=== PATIENT | female | born 1990 ===

== ENCOUNTER 2016-10-26 15:09 | Emergency (ER) | payer MEDICAID, OTHER ==
[2016-10-26 15:26] VITALS: BP 117/70; PULSE 89; RESP 16; TEMP 97.7; O2SAT 99
--- NOTE | 2016-10-26 16:20 | ED PDOC ---
HPI: Female Pain Time Seen by Provider: 10/26/16 15:39 Chief Complaint (Nursing): Female Genitourinary Chief Complaint (Provider): dysuria History Per: Patient Additional Complaint(s): pt c/o dysuria on and off for two weeks, worse x 3 days. no associated fever, cp, sob, abd pain, n/v, flank pain, vaginal bleeding or drainage. Past Medical History Reviewed: Historical Data, Nursing Documentation, Vital Signs Vital Signs: Last Vital Signs Temp 97.7 F 10/26/16 15:23 Pulse 89 10/26/16 15:23 Resp 16 10/26/16 15:23 BP 117/70 10/26/16 15:23 Pulse Ox 99 10/26/16 15:23 - Medical History PMH: No Chronic Diseases - Family History Family History: States: No Known Family Hx - Social History Current smoker - smoking cessation education provided: No Alcohol: None - Home Medications Home Medications: Ambulatory Orders Medication Instructions Recorded Ibuprofen 600 mg PO Q6 #20 tab 07/03/15 Ibuprofen [Motrin] 600 mg PO Q6H PRN #20 tab 10/02/15 Nitrofurantoin Macrocrystals 100 mg PO BID #10 cap 10/26/16 [Macrobid] - Allergies Allergies/Adverse Reactions: Allergies Allergy/AdvReac Type Severity Reaction Status Date / Time walnut Allergy SWELLING Verified 10/02/15 09:39 Review of Systems ROS Statement: Except As Marked, All Systems Reviewed And Found Negative Genitourinary Female: Positive for: Dysuria Physical Exam - Reviewed Nursing Documentation Reviewed: Yes Vital Signs Reviewed: Yes - Physical Exam Appears: Positive for: Well, Non-toxic, No Acute Distress Skin: Positive for: Normal Color, Warm, DRY Cardiovascular/Chest: Positive for: Regular Rate, Rhythm Respiratory: Positive for: CNT, Normal Breath Sounds Gastrointestinal/Abdominal: Positive for: Normal Exam, Bowel Sounds, Soft. Negative for: Tenderness Back: Negative for: L CVA Tenderness, R CVA Tenderness Neurologic/Psych: Positive for: Alert, Oriented - ECG O2 Sat by Pulse Oximetry: 99 Disposition - Clinical Impression Clinical Impression: Urinary tract infection - Patient ED Disposition Is Patient to be Admitted: No - Disposition Referrals: [facility] [Outside] Disposition: Routine/Home Disposition Time: 16:20 Condition: GOOD Prescriptions: Nitrofurantoin Macrocrystals [Macrobid] 100 mg PO BID #10 cap Instructions: Urinary Tract Infection in Women (ED) Forms: [facility] ED School/Work Excuse
== END 2016-10-26 17:07 | disposition home or self-care (01) ==
LOC: H.ER 15:09
DX: N39.0 Urinary tract infection, site not specified (principal); R30.0 Dysuria